=== PATIENT | female | born 1985 | race Caucasian/White ===

== ENCOUNTER 2021-07-01 15:13 | Emergency (ER) | payer SELFPAY ==
--- NOTE | ~2021-07-01 | XR_ITS ---
XR hip RT 2V w AP pelvis DATE: 07/01/2021 15:36 INDICATION: Fall. Right lateral hip pain. TECHNIQUE: AP pelvis. AP and lateral views of right hip COMPARISON: None FINDINGS: No pelvic fracture is detected. The pubic symphysis and sacroiliac joints are intact. Hip joint spaces are symmetric and well preserved. There is a minimally displaced right greater trochanteric fracture. The right femoral head and neck a nd lesser trochanter are intact. IMPRESSION: Minimally displaced greater trochanteric fracture of proximal right femur Reviewed, dictated and finalized at location A.
[2021-07-01 15:15] VITALS: BP 145/94; PULSE 83; RESP 18; TEMP 37.4; O2SAT 99
[2021-07-01] MEDS: oxyCODONE/ACETAMINOPHEN (*CRX) 5-325 MG TABLET 1 TABLET PO (16:36)
[2021-07-01] MEDS: KETOROLAC 10 MG TABLET PO (16:37)
[2021-07-01 17:06] VITALS: TEMP 37.4
[2021-07-01 17:07] VITALS: TEMP 37.4
--- NOTE | 2021-07-01 17:12 | ED.GENADULT ---
HPI - General Adult General Chief complaint: Fall Stated complaint: fall, pulled down by her dog Time Seen by Provider: 07/01/21 15:23 Source: patient Mode of arrival: wheelchair Limitations: no limitations History of Present Illness HPI narrative: Patient presents with chief complaint of pain to the right hip that began last night after being pulled down by her dog who was trying to pritesh a rabbit. Patient states that she was able to get up and walk into the house but she was in pain. However she states this morning she was unable to walk in and the fire department had to be called to put her into the car to bring her into the emergency department. Patient has abrasions to her right shoulder and elbow but states that they are not painful. She declines any head impact or injury or any other injuries. Related Data Allergies Allergy/AdvReac Type Severity Reaction Status Date / Time No Known Allergies Allergy Verified 07/01/21 15:18 Review of Systems Review of Systems: CONSTITUTIONAL: Denies fever, chills, or sweats. EYES: Denies visual changes, redness, or discharge. ENT: Denies rhinorrhea, congestion, sore throat, or otalgia. CARDIOVASCULAR: Denies chest pain, palpitations, or edema. RESPIRATORY: Denies cough or dyspnea. GASTROINTESTINAL: Denies abdominal pain, nausea, vomiting, or diarrhea. GENITOURINARY: Denies dysuria or hematuria. SKIN: Reports abrasions denies rash or itching. MUSCULOSKELETAL: Reports right hip pain denies back pain or myalgia. NEUROLOGIC: Denies headache, numbness, dizziness, or weakness. PSYCHIATRIC: Denies anxiety or depression. [facility] Social History Social History Smoking status: Current every day smoker Alcohol intake: current Gender identity (if verbalized by the patient): Female Exam Narrative: GENERAL: Well-appearing, thin, and in no acute distress. HEAD: Normocephalic, atraumatic. EYES: PERRLA and EOMI. NECK: Supple. No adenopathy or masses. Range of motion intact. No pain with palpation. CHEST: Clear to auscultation. No respiratory distress. Nontender to palpation. HEART: Regular rate and rhythm. EXTREMITIES: Painful palpation to the lateral aspect of the right hip over trochanteric region. Patient refuses to weight-bear or do range of motion exercises due to pain. Normal range of motion to right shoulder and elbow without pain. No edema. SKIN: Abrasion to right shoulder and right elbow. Warm, dry, no rash. NEURO: No focal deficits. Alert and oriented x3. PSYCH: Normal mood and affect. Course Vital Signs Vital signs: Vital Signs Temperature 99.3 F 07/01/21 15:15 Pulse Rate 83 07/01/21 15:15 Respiratory Rate 18 07/01/21 15:15 Blood Pressure 145/94 H 07/01/21 15:15 Pulse Oximetry 99 07/01/21 15:15 Temperature 99.3 F 07/01/21 15:15 Pulse Rate 83 07/01/21 15:15 Respiratory Rate 18 07/01/21 15:15 Blood Pressure 145/94 H 07/01/21 15:15 Pulse Oximetry 99 07/01/21 15:15 Medical Decision Making MDM Narrative Medical decision making narrative: Consult with patient service specialist Dr. Smith who states to give the patient Percocet and Toradol for pain. He states to have the patient follow-up with him in the office. He states that it is a nonsurgical fracture and patient can be given crutches to assist with ambulation. Differential Diagnosis Differential Diagnosis: Fracture, sprain, strain Vital Signs Vital Signs: Vital Signs Temperature 99.3 F 07/01/21 15:15 Pulse Rate 83 07/01/21 15:15 Respiratory Rate 18 07/01/21 15:15 Blood Pressure 145/94 H 07/01/21 15:15 Pulse Oximetry 99 07/01/21 15:15 Temperature 99.3 F 07/01/21 15:15 Pulse Rate 83 07/01/21 15:15 Respiratory Rate 18 07/01/21 15:15 Blood Pressure 145/94 H 07/01/21 15:15 Pulse Oximetry 99 07/01/21 15:15 Imaging Data Radiologist's impression: ITS Impressions Hip/Pelvis X-Ray 07/01/21 15:40 IMPRESSION: Minimally displaced greater trochante
[2021-07-01 17:20] VITALS: BP 129/88; PULSE 92; RESP 18; O2SAT 99
== END 2021-07-01 17:20 | disposition home or self-care (01) ==
PROVIDERS: Emergency Provider Emergency Medicine; PCP Family Medicine
DX: S72.111A Displaced fracture of greater trochanter of right femur, initial encounter for closed fracture (principal); F17.200 Nicotine dependence, unspecified, uncomplicated; W18.39XA Other fall on same level, initial encounter
CPT/HCPCS: 73502; 99284; A9270